=== PATIENT | male | born 1950 | race Caucasian/White ===

== ENCOUNTER 2025-05-09 07:06 | Day surgery (SDC) | payer MEDICARE, BC ==
[2025-05-09] MEDS ORDERED: Midazolam 1 MG/ML 2 ML SDV IV ONE (07:07)
[2025-05-09] MEDS ORDERED: Sodium Chloride 0.9% 10 ML Syringe IV ONE (07:07)
[2025-05-09] MEDS ORDERED: Dexamethasone 4 MG/ML SDV IV ONE (07:07)
[2025-05-09] MEDS ORDERED: Ondansetron 4 MG/2 ML SDV IVPUSH PRN (07:30)
[2025-05-09] MEDS: Povidone-Iodine 5% Sterile Ophth Soln 30 ML Bottle EYELF ONE ×2 (07:48→09:12)
[2025-05-09] MEDS: Moxifloxacin 0.5% Ophth Soln 3 ML Bottle EYELF ONE (07:48)
[2025-05-09] MEDS: Phenylephrine 10% Ophth Soln 5 ML Bot EYELF ONE (07:49)
[2025-05-09] MEDS: Timolol Maleate 0.5% Ophth Soln 5 ML Bottle EYELF ONE (07:50)
[2025-05-09] MEDS: Cataract Ophth Solution EYELF ONE (07:50)
[2025-05-09] MEDS: Dexamethasone/Neomycin/Polymyxin B Ophth Oint 3.5 GM Tube EYELF ONE (09:13)
[2025-05-09] MEDS: Apraclonidine 0.5% Ophth Soln 5 ML Bot EYELF ONE (09:13)
[2025-05-09] MEDS: Diclofenac Sodium 0.1% Ophth Soln 5 ML Bottle EYELF ONE (09:13)
[2025-05-09] MEDS ORDERED: Dexamethasone 4 MG/ML SDV ONE (10:10)
== END 2025-05-09 10:04 | disposition home or self-care (01) ==
LOC: DL.SDS 07:06
PROVIDERS: ATTEND Ophthalmology
DX: H25.813 Combined forms of age-related cataract, bilateral (principal); I10 Essential (primary) hypertension; R79.89 Other specified abnormal findings of blood chemistry; F17.210 Nicotine dependence, cigarettes, uncomplicated; Z79.899 Other long term (current) drug therapy
CPT/HCPCS: A9270-GY; J1100; J2003; J2250; J3373; J3490

== ENCOUNTER → 2025-05-23 | Day surgery (SDC) | payer MEDICARE, BC ==
[~2025-05-23] MED LIST: Dexamethasone 4 MG/ML SDV IV ONE; Midazolam 1 MG/ML 2 ML SDV IV ONE; Ondansetron 4 MG/2 ML SDV IVPUSH PRN; Sodium Chloride 0.9% 10 ML Syringe IV ONE
[2025-05-23] MEDS: Moxifloxacin 0.5% Ophth Soln 3 ML Bottle EYERT ONE (07:44)
[2025-05-23] MEDS: Povidone-Iodine 5% Sterile Ophth Soln 30 ML Bottle EYERT ONE ×2 (07:46→09:35)
[2025-05-23] MEDS: Phenylephrine 10% Ophth Soln 5 ML Bot EYERT ONE (07:47)
[2025-05-23] MEDS: Timolol Maleate 0.5% Ophth Soln 5 ML Bottle EYERT ONE (07:48)
[2025-05-23] MEDS: Cataract Ophth Solution EYERT ONE (07:49)
[2025-05-23] MEDS: Diclofenac Sodium 0.1% Ophth Soln 5 ML Bottle EYERT ONE (09:36)
[2025-05-23] MEDS: Apraclonidine 0.5% Ophth Soln 5 ML Bot EYERT ONE (09:36)
[2025-05-23] MEDS: Dexamethasone/Neomycin/Polymyxin B Ophth Oint 3.5 GM Tube EYERT ONE (09:37)
== END | disposition home or self-care (01) ==
LOC: DL.SDS 07:06
PROVIDERS: ATTEND Ophthalmology
DX: H25.811 Combined forms of age-related cataract, right eye (principal); I10 Essential (primary) hypertension; R79.89 Other specified abnormal findings of blood chemistry; F17.210 Nicotine dependence, cigarettes, uncomplicated; Z79.899 Other long term (current) drug therapy
CPT/HCPCS: A9270-GY; C1780; J1100; J2003; J2250; J3373; J3490